=== PATIENT | male | born 2000 | race Caucasian/White ===

== ENCOUNTER 2020-01-30 00:08 | Inpatient (IN) | payer BC ==
[~2020-01-30] VITALS: Ht 175.3 cm; Wt 66.9 kg
[2020-01-30 00:45] LABS: BASO # 0.1 (0.0-0.2); BASO % 0.7 % (0.0-2.0); EOS # 0.3 (0.0-0.7); EOS % 4.8 % (0-4.0); GRAN # 3.2 (1.4-6.5); GRAN % 44.8 % (42.2-75.2); HEMATOCRIT 42.4 % (36.0-47.0); HEMOGLOBIN 14.5 g/dl (12.5-16.1); LYMPH # 2.9 (1.2-3.4); LYMPH % 40.1 % (20.0-51.0); MEAN CELL VOLUME 86 fl (80.0-95.0); MEAN CORPUSCULAR HEMOGLOBIN 29 pg (26.0-32.0); MEAN CORPUSCULAR HGB CONC 34 g/dl (33.0-37.0); MEAN PLATELET VOLUME 9.8 fl (7.4-10.4); MONO # 0.7 (0.1-0.6); MONO % 9.3 % (1.7-9.3); PLATELET COUNT 253 K/mm3 (130-400); RED BLOOD COUNT 4.93 M/mm3 (4.20-5.60); REDCELL DISTRIBUTION WIDTH-CV 11.5 % (11.5-14.5)
[2020-01-30 01:04] LABS: ALANINE AMINOTRANSFERASE 116 U/L (4-49); ALBUMIN 4.8 gm/dL (3.5-5.0); ALKALINE PHOSPHATASE 94 U/L (50-136); ANION GAP 9 mmol/L (7-16); AST,SGOT 693 U/L (15-37); BILIRUBIN,TOTAL 0.4 mg/dL (0.0-1.0); BLOOD UREA NITROGEN 22 mg/dL (9-20); CALCIUM 9.5 mg/dL (8.4-10.2); CARBON DIOXIDE 29 mmol/L (22-30); CHLORIDE 102 mmol/L (98-107); CREATININE, serum 0.85 (0.66-1.25); GLUCOSE 110 mg/dL (74-106); POTASSIUM 3.8 mmol/L (3.4-5.0); SODIUM 139 mmol/L (137-145); TOTAL PROTEIN 7.6 gm/dL (6.4-8.2)
[2020-01-30 01:16] LABS: TROPONIN-I < 0.012 ng/mL (0.000-0.035)
[2020-01-30 01:28] LABS: PROTHROMBIN TIME 11.5 SECONDS (9.7-12.8)
[2020-01-30 01:52] LABS: CREATINE KINASE 67525 U/L (55-170)
[2020-01-30 03:07] VITALS: BP 124/67; PULSE 54; TEMP 98.3
[2020-01-30 08:01] VITALS: BP 113/66; PULSE 66; TEMP 98.1
[2020-01-30 09:24] LABS: ALBUMIN 3.8 gm/dL (3.5-5.0); BILIRUBIN,TOTAL 0.5 mg/dL (0.0-1.0); CALCIUM 8.6 mg/dL (8.4-10.2); CREATININE, serum 0.74 (0.66-1.25); POTASSIUM 4.1 mmol/L (3.4-5.0); TOTAL PROTEIN 6.2 gm/dL (6.4-8.2)
[2020-01-30 09:25] LABS: BASO % 0.7 % (0.0-2.0); EOS # 0.3 (0.0-0.7); EOS % 5.5 % (0-4.0); GRAN # 3.1 (1.4-6.5); GRAN % 53.8 % (42.2-75.2); HEMATOCRIT 38.5 % (36.0-47.0); HEMOGLOBIN 12.9 g/dl (12.5-16.1); LYMPH # 1.8 (1.2-3.4); LYMPH % 30.5 % (20.0-51.0); MEAN CELL VOLUME 88 fl (80.0-95.0); MEAN CORPUSCULAR HEMOGLOBIN 29 pg (26.0-32.0); MEAN CORPUSCULAR HGB CONC 34 g/dl (33.0-37.0); MEAN PLATELET VOLUME 10.3 fl (7.4-10.4); MONO # 0.5 (0.1-0.6); MONO % 9.3 % (1.7-9.3); PLATELET COUNT 218 K/mm3 (130-400); REDCELL DISTRIBUTION WIDTH-CV 11.5 % (11.5-14.5)
[2020-01-30 11:35] VITALS: BP 128/59; PULSE 59; TEMP 97.8
[2020-01-30 16:45] VITALS: BP 106/69; PULSE 50; TEMP 98.4
[2020-01-30 20:08] VITALS: BP 137/57; PULSE 58; TEMP 98.3
[2020-01-31 00:11] VITALS: BP 131/63; PULSE 54; TEMP 98.7
[2020-01-31 03:22] LABS: PH 6 (5-8); SQUAMOUS EPITHELIAL 0-2 /hpf; URINE APPEARANCE Clear; URINE BACTERIA None Seen /hpf; URINE BILIRUBIN Negative (NEGATIVE); URINE BLOOD Negative (NEGATIVE); URINE COLOR Straw; URINE GLUCOSE Negative (NEGATIVE); URINE KETONE Negative (NEGATIVE); URINE LEUKOCYTE ESTERASE Negative (NEGATIVE); URINE NITRATE Negative (NEGATIVE); URINE PROTEIN(semi-quant) Negative (NEGATIVE); URINE RBC 0-2 /hpf; URINE UROBILINOGEN Negative (NEGATIVE); URINE WBC None Seen /hpf
[2020-01-31 04:55] VITALS: BP 117/62; PULSE 53; TEMP 98
[2020-01-31 04:58] LABS: COLLECTION METHOD CLEAN CATCH
[2020-01-31 07:32] VITALS: BP 108/48; PULSE 51; TEMP 97.9
[2020-01-31 08:31] LABS: ALBUMIN 3.9 gm/dL (3.5-5.0); BILIRUBIN,TOTAL 0.3 mg/dL (0.0-1.0); CALCIUM 8.8 mg/dL (8.4-10.2); CREATININE, serum 0.74 (0.66-1.25); POTASSIUM 3.9 mmol/L (3.4-5.0); TOTAL PROTEIN 6.3 gm/dL (6.4-8.2)
[2020-01-31 12:17] VITALS: BP 124/49; PULSE 69; TEMP 98.1
[2020-01-31 16:00] VITALS: BP 128/62; PULSE 53; TEMP 97.7
[2020-01-31 20:00] VITALS: BP 124/60; PULSE 66; TEMP 98.1
[2020-02-01] VITALS (7 sets, daily range): BP systolic 96–131; BP diastolic 47–62; PULSE 57–74; TEMP 97.4–99.4
[2020-02-01 07:20] LABS: BASO # 0.1 (0.0-0.2); EOS # 0.3 (0.0-0.7); EOS % 6.3 % (0-4.0); GRAN # 2.3 (1.4-6.5); HEMOGLOBIN 13.3 g/dl (12.5-16.1); LYMPH % 38.9 % (20.0-51.0); MEAN CELL VOLUME 88 fl (80.0-95.0); MEAN CORPUSCULAR HEMOGLOBIN 30 pg (26.0-32.0); MEAN CORPUSCULAR HGB CONC 34 g/dl (33.0-37.0); MEAN PLATELET VOLUME 9.8 fl (7.4-10.4); MONO # 0.5 (0.1-0.6); MONO % 9.4 % (1.7-9.3); PLATELET COUNT 229 K/mm3 (130-400); RED BLOOD COUNT 4.45 M/mm3 (4.20-5.60); REDCELL DISTRIBUTION WIDTH-CV 11.4 % (11.5-14.5)
[2020-02-01 07:35] LABS: ALBUMIN 3.9 gm/dL (3.5-5.0); BILIRUBIN,TOTAL 0.3 mg/dL (0.0-1.0); CALCIUM 8.7 mg/dL (8.4-10.2); CREATININE, serum 0.72 (0.66-1.25); POTASSIUM 3.9 mmol/L (3.4-5.0); TOTAL PROTEIN 6.3 gm/dL (6.4-8.2)
[2020-02-02 02:59] VITALS: BP 120/52; PULSE 47; TEMP 98.2
[2020-02-02 07:01] LABS: BASO # 0.1 (0.0-0.2); BASO % 1.1 % (0.0-2.0); EOS # 0.3 (0.0-0.7); GRAN # 2.2 (1.4-6.5); GRAN % 41.1 % (42.2-75.2); HEMOGLOBIN 12.9 g/dl (12.5-16.1); LYMPH # 2.3 (1.2-3.4); LYMPH % 43.8 % (20.0-51.0); MEAN CELL VOLUME 87 fl (80.0-95.0); MEAN CORPUSCULAR HEMOGLOBIN 30 pg (26.0-32.0); MEAN CORPUSCULAR HGB CONC 34 g/dl (33.0-37.0); MEAN PLATELET VOLUME 10.4 fl (7.4-10.4); MONO # 0.5 (0.1-0.6); MONO % 8.6 % (1.7-9.3); PLATELET COUNT 237 K/mm3 (130-400); RED BLOOD COUNT 4.36 M/mm3 (4.20-5.60); REDCELL DISTRIBUTION WIDTH-CV 11.4 % (11.5-14.5)
[2020-02-02 07:18] LABS: ALBUMIN 3.9 gm/dL (3.5-5.0); BILIRUBIN,TOTAL 0.3 mg/dL (0.0-1.0); CALCIUM 8.9 mg/dL (8.4-10.2); CREATININE, serum 0.7 (0.66-1.25); POTASSIUM 3.7 mmol/L (3.4-5.0); TOTAL PROTEIN 6.3 gm/dL (6.4-8.2)
[2020-02-02 08:37] VITALS: BP 121/53; PULSE 64; TEMP 97.6
== END 2020-02-02 10:43 | disposition home or self-care (01) | DRG 558 ==
LOC: COL.ER 00:08 → MEDICAL 02:24
PROVIDERS: Emergency Medicine; Nurse Practitioner Primary Care; Physician Assistant; ADMIT Internal Medicine
DX: M62.82 Rhabdomyolysis (principal); T75.4XXA Electrocution, initial encounter; R79.89 Other specified abnormal findings of blood chemistry; M79.622 Pain in left upper arm
CPT/HCPCS: 99222-AI; 99232-AI; 99233-AI; 99239; J7030

== ENCOUNTER 2021-03-26 21:22 | Emergency (ER) | payer BC ==
[~2021-03-26] VITALS: Ht 175.3 cm; Wt 65.6 kg
[2021-03-26 22:57] LABS: HEMATOCRIT 39.6 % (36.0-47.0); HEMOGLOBIN 13.7 g/dl (12.5-16.1); MEAN CELL VOLUME 85 fl (80.0-95.0); MEAN CORPUSCULAR HEMOGLOBIN 29 pg (26.0-32.0); MEAN CORPUSCULAR HGB CONC 35 g/dl (33.0-37.0); MEAN PLATELET VOLUME 9.7 fl (7.4-10.4); PLATELET COUNT 167 K/mm3 (130-400); RED BLOOD COUNT 4.67 M/mm3 (4.20-5.60); REDCELL DISTRIBUTION WIDTH-CV 11.6 % (11.5-14.5)
[2021-03-26 23:10] LABS: STREP SCREEN NEGATIVE
[2021-03-26 23:17] LABS: ALBUMIN 3.9 gm/dL (3.5-5.0); BILIRUBIN,TOTAL 0.4 mg/dL (0.2-1.2); CALCIUM 8.3 mg/dL (8.4-10.2); CREATININE, serum 1.03 mg/dL (0.72-1.25); POTASSIUM 3.7 mmol/L (3.5-4.5); TOTAL PROTEIN 6.4 gm/dL (6.2-8.1)
[2021-03-26 23:22] LABS: COLLECTION METHOD CLEAN CATCH
[2021-03-26 23:27] LABS: BAND 10 % (0-10); LYMPHOCYTE 22 % (20.0-51.0); NEUTROPHILS 50 % (42.0-75.2); PLATELET ESTIMATE NORMAL (NORMAL)
[2021-03-26 23:28] LABS: MUCOUS Present /lpf; PH 5 (5-8); SQUAMOUS EPITHELIAL None Seen /hpf; URINE APPEARANCE Clear; URINE BACTERIA None Seen /hpf; URINE BILIRUBIN Negative (NEGATIVE); URINE BLOOD Negative (NEGATIVE); URINE COLOR Yellow; URINE GLUCOSE Negative (NEGATIVE); URINE KETONE 1+ (NEGATIVE); URINE LEUKOCYTE ESTERASE Negative (NEGATIVE); URINE NITRATE Negative (NEGATIVE); URINE PROTEIN(semi-quant) Negative (NEGATIVE); URINE RBC 0-2 /hpf; URINE UROBILINOGEN Negative (NEGATIVE)
[2021-03-26 23:35] LABS: MONOSCREEN NEGATIVE
[2021-03-27] MEDS ORDERED: AMOXICILLIN 50500 MG PO (00:12)
[2021-03-27 00:40] VITALS: BP 134/68; PULSE 85; TEMP 101.3
== END 2021-03-27 00:44 | disposition home or self-care (01) ==
LOC: COL.ER 21:22
PROVIDERS: Emergency Medicine
DX: R50.9 Fever, unspecified (principal); Z20.822 Contact with and (suspected) exposure to COVID-19
CPT/HCPCS: J1885; J7030